=== PATIENT | male | born 1965 | race African-American/Black ===

== ENCOUNTER 2017-01-11 11:50 | Inpatient (IN) | payer OTHER ==
[2017-01-11 13:23] VITALS: BMI 33.6
--- NOTE | 2017-01-11 15:37 | HP ---
CIWA Score - CIWA Score Nausea/Vomitin Muscle Tremors: 2 Anxiety: 3 Agitation: 2 Paroxysmal Sweats: 3 Orientation: 0-Oriented Tacttile Disturbances: 1-Very Mild Itch/Numbness Auditory Disturbances: 0-None Visual Disturbances: 0-None Headache: 0-None Present CIWA-Ar Total Score: 13 Admission ROS BHS - HPI Chief Complaint: I need to get detoxed and i need help. Allergies/Adverse Reactions: Allergies Allergy/AdvReac Type Severity Reaction Status Date / Time shellfish derived Allergy Severe Difficulty Verified 01/11/17 15:30 Breathing History of Present Illness: 51 y/o m pt with a h/o chronic alcoholism and crack dep seeking detox. Exam Limitations: No Limitations - Ebola screening Have you traveled outside of the country in the last 21 days: No Have you had contact with anyone from an Ebola affected area: No Have you been sick,other than usual withdrawal symptoms: No Do you have a fever: No - Review of Systems Constitutional: Malaise, Changes in sleep EENT: reports: Other (OS blindness) Respiratory: reports: No Symptoms reported Cardiac: reports: No Symptoms Reported GI: reports: No Symptoms Reported : reports: No Symptoms Reported Musculoskeletal: reports: No Symptoms Reported Integumentary: reports: No Symptoms Reported Neuro: reports: Tremors, Weakness Endocrine: reports: No Symptoms Reported Hematology: reports: Other (h/o high hemoglobin) Psychiatric: reports: No Sypmtoms Reported Other Systems: Reviewed and Negative Patient History - Patient Medical History Hx Anemia: No Hx Asthma: No Hx Chronic Obstructive Pulmonary Disease (COPD): No Hx Cancer: No Hx Cardiac Disorders: No Hx Congestive Heart Failure: No Hx Hypertension: Yes Hx Hypercholesterolemia: Yes Hx Pacemaker: No HX Cerebrovascular Accident: No Hx Seizures: No Hx Dementia: No Hx Diabetes: No Hx Gastrointestinal Disorders: No Hx Liver Disease: No Hx Genitourinary Disorders: No Hx Sexually Transmitted Disorders: No Hx Renal Disease (ESRD): Yes Hx Thyroid Disease: No Hx Human Immunodeficiency Virus (HIV): Yes Hx Hepatitis C: No Hx Depression: No Hx Suicide Attempt: No Hx Bipolar Disorder: No Hx Schizophrenia: No Other Medical History: gout - Patient Surgical History Past Surgical History: Yes Other Surgical History: OD detached retina - PPD History Documented Results: Positive w/proof PPD to be Administered?: No - Reproductive History Patient is a Female of Child Bearing Age (11 -55 yrs old): No - Smoking Cessation Smoking history: Current every day smoker Have you smoked in the past 12 months: Yes Aproximately how many cigarettes per day: 5 Cigars Per Day: 0 Hx Chewing Tobacco Use: No Initiated information on smoking cessation: Yes 'Breaking Loose' booklet given: 01/11/17 - Substance & Tx. History Hx Alcohol Use: Yes Hx Substance Use: Yes Substance Use Type: Alcohol, Cocaine Hx Substance Use Treatment: Yes - Substances Abused Alcohol Route: Oral Frequency: Daily Amount used: vodka 1pt/d Age of first use: 14 Date of Last Use: 01/10/17 Crack Route: Smoking Frequency: Daily Amount used: $50./d Age of first use: 18 Date of Last Use: 01/10/17 Family Disease History - Family Disease History Family Disease History: Diabetes: Father, Brother (esrd), Sister, Heart Disease : Father Admission Physical Exam BHS - Vital Signs Vital Signs: Vital Signs - 24 hr 01/11/17 13:21 Temperature 96 F L Pulse Rate 59 L Respiratory 19 Rate Blood Pressure 144/92 51 y/o obese m pt aox3 in nad ambulating - Physical General Appearance: Yes: No Apparent Distress, Appropriately Dressed, Obese HEENTM: Yes: EOMI, Hearing grossly Normal, Normal Voice, Other (OS opacity , erythematous conjunctiva) Respiratory: Yes: Chest Non-Tender, Lungs Clear, Normal Breath Sounds, No Respiratory Distress Neck: Yes: Supple Breast: Yes: Within Normal Limits Cardiology: Yes: Regular Rhythm, S1, S2, Bradycardia Abdominal: Yes: Non Tender, Flat, Soft, Increased Bowel Sounds, Protuberent Genitourinary: Yes: Within Normal Limits Back: Yes: Decreased Range of Motion Musculoskeletal: Yes: Within Normal Limits Extremities: Yes: Within Normal Limits Neurological: Yes: Fully Oriented, Alert, Motor Strength 5/5, Normal Response, Finger to Nose Integumentary: Yes: Moist Lymphatic: Yes: Within Normal Limits - Diagnostic (1) Alcohol dependence with uncomplicated withdrawal Current Visit: Yes Status: Chronic (2) Crack cocaine use Current Visit: Yes Status: Chronic (3) HIV (human immunodeficiency virus infection) Current Visit: Yes Status: Chronic (4) HTN (hypertension) with goal to be determined Current Visit: Yes Status: Chronic (5) Blindness of left eye Current Visit: Yes Status: Chronic (6) Gout Current Visit: Yes Status: Chronic Qualifiers: Gout site: unspecified site Chronicity: chronic (7) Nicotine dependence Current Visit: Yes Status: Chronic Qualifiers: Nicotine product type: cigarettes Substance use status: uncomplicated Qualified Code(s): F17.210 - Nicotine dependence, cigarettes, uncomplicated Cleared for Admission [facility] - Detox or Rehab [facility] Level of Care: Medically Managed Detox Regimen/Protocol: Librium S Breath Alcohol Content Breath Alcohol Content: 0 Urine Drug Screen - Results Drug Screen Negative: Yes
[2017-01-11] MEDS ORDERED: guaiFENesin/D-METHORPHAN HB 10 ML UNIT-DOSE CUPS PO PRN (15:59)
[2017-01-11] MEDS ORDERED: P-EPHED 60MG/TRIPROLIDI 2.5MG TABLET PO PRN (15:59)
[2017-01-11] MEDS ORDERED: LOPERAMIDE HCL 2 MG CAPSULE PO PRN (15:59)
[2017-01-11] MEDS ORDERED: MENTHOL/PHENOL 1 EACH UD MM PRN (15:59)
[2017-01-11] MEDS ORDERED: hydrOXYzine PAMOATE 25 MG CAPSULE (FP) PO PRN (15:59)
[2017-01-11] MEDS ORDERED: MAGNESIUM CITRATE 300 ML BOTTLE PO PRN (15:59)
[2017-01-11] MEDS ORDERED: diphenhydrAMINE HCL 50 MG CAPSULE PO PRN (15:59)
[2017-01-11] MEDS ORDERED: MAGNESIUM HYDROX 2400MG/30ML ORAL SUSPENSION 30 ML CUP PO PRN (15:59)
[2017-01-11] MEDS ORDERED: MAG HYDROX/AL HYDROX/SIMETH 30 ML UNIT-DOSE CUP PO PRN (15:59)
[2017-01-11] MEDS ORDERED: NICOTINE POLACRILEX 2 MG GUM BC PRN (15:59)
[2017-01-11] MEDS ORDERED: ACETAMINOPHEN 325 MG TABLET (FP) PO PRN (15:59)
[2017-01-11] MEDS ORDERED: IBUPROFEN 400 MG TABLET (FP) PO PRN (15:59)
[2017-01-11] MEDS ORDERED: chlordiazePOXIDE HCL 25 MG CAPSULE PO PRN (15:59)
[2017-01-11] MEDS: chlordiazePOXIDE HCL 25 MG CAPSULE PO SCH ×2 (17:57→22:12)
[2017-01-11] MEDS ORDERED: ATORVASTATIN CA 10 MG TABLET (FP) PO SCH (22:00)
[2017-01-11] MEDS: COLCHICINE 0.6 MG TABLET (FP) PO SCH (22:13)
[2017-01-11] MEDS: THIAMINE HCL 100 MG TABLET (FP) PO SCH (22:13)
[2017-01-11] MEDS: cloNIDine HCL 0.1 MG TABLET PO SCH (22:13)
[2017-01-11] MEDS: prednisoLONE ACETATE 1% OPHTH SUSP 5 ML BOTTLE OS SCH (22:58)
[2017-01-12] MEDS: chlordiazePOXIDE HCL 25 MG CAPSULE PO SCH ×4 (06:15→22:09)
[2017-01-12] MEDS: COLCHICINE 0.6 MG TABLET (FP) PO SCH ×3 (06:17→22:09)
[2017-01-12 09:57] LABS: MCHC 32.9 g/dl (32.0-35.9); MEAN CELL VOLUME 97.3 fl (80-96); MEAN PLT VOLUME 13.8 fl (7.5-11.1); PLATELET COUNT 91 K/MM3 (134-434); RDW 13.8 % (11.9-15.9)
[2017-01-12 10:45] LABS: ALBUMIN 3.7 g/dl (3.4-5.0); BILIRUBIN,TOTAL 0.4 mg/dL (0.2-1.0); CALCIUM 9.5 mg/dL (8.5-10.1); COCKROFT - GAULT 69.19; CREATININE 1.6 mg/dL (0.7-1.3)
--- NOTE | 2017-01-12 10:54 | PN ---
S CIWA - CIWA Score Nausea/Vomitin-No Nausea/No Vomiting Muscle Tremors: 4-Moderate,w/Arms Extend Anxiety: 3 Agitation: 3 Paroxysmal Sweats: 3 Orientation: 0-Oriented Tacttile Disturbances: 0-None Auditory Disturbances: 0-None Visual Disturbances: 0-None Headache: 0-None Present CIWA-Ar Total Score: 13 BHS Progress Note (SOAP) Subjective: shakes sweats interrupted sleep body aches irritable Objective: 01/12/17 10:53 Vital Signs Temperature 98.4 F 01/12/17 09:43 Pulse Rate 78 01/12/17 09:43 Respiratory Rate 16 01/12/17 09:43 Blood Pressure 129/89 01/12/17 09:43 O2 Sat by Pulse Oximetry (%) Laboratory Tests 01/12/17 01/12/17 06:00 06:00 WBC 5.0 RBC 5.59 Hgb 17.9 H Hct 54.4 H MCV 97.3 H MCHC 32.9 RDW 13.8 Plt Count 91 L MPV 13.8 H Sodium 143 Potassium 3.9 Chloride 106 Carbon Dioxide 25 Anion Gap 12 BUN 17 Creatinine 1.6 H Creat Clearance w eGFR 45.44 Random Glucose 120 H Calcium 9.5 Total Bilirubin 0.4 AST 36 ALT 36 Alkaline Phosphatase 65 Total Protein 7.0 Albumin 3.7 awake/alert ambulating no acute distress Assessment: 01/12/17 11:17 withdrawal sx Plan: continue detox increase fluids
[2017-01-12] MEDS: METOPROLOL SUCCINATE 25 MG TAB.SR.24H (FP) PO SCH (11:02)
[2017-01-12] MEDS: amLODIPine BESYLATE 10 MG TABLET (FP) PO SCH (11:02)
[2017-01-12] MEDS: PRENATAL VITAMINS W/ FOLIC ACID TABLET (FP) PO SCH (11:02)
[2017-01-12] MEDS: cloNIDine HCL 0.1 MG TABLET PO SCH ×2 (11:03→22:09)
[2017-01-12] MEDS: LOSARTAN POTASSIUM 50 MG TABLET (FP) PO SCH (11:04)
[2017-01-12] MEDS: ALLOPURINOL 100 MG TABLET (FP) PO SCH (11:04)
[2017-01-12] MEDS: NICOTINE 7 MG/24 HOURS TOPICAL PATCH TD SCH (11:05)
[2017-01-12] MEDS: prednisoLONE ACETATE 1% OPHTH SUSP 5 ML BOTTLE OS SCH ×2 (11:08→22:08)
[2017-01-12] MEDS: AZELASTINE 0.05% OU SCH (22:08)
[2017-01-12] MEDS: ZOCOR 20 MG PO SCH (22:09)
[2017-01-12] MEDS: THIAMINE HCL 100 MG TABLET (FP) PO SCH (22:09)
--- NOTE | 2017-01-12 23:08 | EKG ---
Test Reason : Blood Pressure : / mmHG Vent. Rate : 050 BPM Atrial Rate : 050 BPM P-R Int : 138 ms QRS Dur : 088 ms QT Int : 422 ms P-R-T Axes : 050 000 007 degrees QTc Int : 384 ms SINUS BRADYCARDIA POSSIBLE LEFT ATRIAL ENLARGEMENT ST ELEVATION, CONSIDER EARLY REPOLARIZATION, PERICARDITIS, OR INJURY ABNORMAL ECG NO PREVIOUS ECGS AVAILABLE Confirmed by ISAI KASPER MD ([id number]) on 01/12/2017 11:07:54 PM Referred By: Confirmed By:ISAI KASPER MD
[2017-01-13] MEDS: COLCHICINE 0.6 MG TABLET (FP) PO SCH ×3 (06:15→22:07)
[2017-01-13] MEDS: chlordiazePOXIDE HCL 25 MG CAPSULE PO SCH ×2 (06:15→11:07)
[2017-01-13] MEDS: METOPROLOL SUCCINATE 25 MG TAB.SR.24H (FP) PO SCH (11:07)
[2017-01-13] MEDS: AZELASTINE 0.05% OU SCH ×2 (11:07→22:04)
[2017-01-13] MEDS: cloNIDine HCL 0.1 MG TABLET PO SCH ×2 (11:07→22:04)
[2017-01-13] MEDS: PRENATAL VITAMINS W/ FOLIC ACID TABLET (FP) PO SCH (11:07)
[2017-01-13] MEDS: NICOTINE 7 MG/24 HOURS TOPICAL PATCH TD SCH (11:08)
[2017-01-13] MEDS: LOSARTAN POTASSIUM 50 MG TABLET (FP) PO SCH (11:08)
[2017-01-13] MEDS: amLODIPine BESYLATE 10 MG TABLET (FP) PO SCH (11:09)
[2017-01-13] MEDS: prednisoLONE ACETATE 1% OPHTH SUSP 5 ML BOTTLE OS SCH ×2 (11:25→22:04)
[2017-01-13] MEDS: ALLOPURINOL 100 MG TABLET (FP) PO SCH (11:42)
--- NOTE | 2017-01-13 13:42 | PN ---
S CIWA - CIWA Score Nausea/Vomitin Muscle Tremors: 2 Anxiety: 2 Agitation: 2 Paroxysmal Sweats: 3 Orientation: 0-Oriented Tacttile Disturbances: 1-Very Mild Itch/Numbness Auditory Disturbances: 0-None Visual Disturbances: 0-None Headache: 0-None Present CIWA-Ar Total Score: 12 S Progress Note (SOAP) Subjective: interrupted sleep, sweats but better than yesterday Vital Signs Temperature 97.9 F 01/13/17 09:45 Pulse Rate 76 01/13/17 09:45 Respiratory Rate 16 01/13/17 09:45 Blood Pressure 136/98 01/13/17 09:45 O2 Sat by Pulse Oximetry (%) Laboratory Tests 01/12/17 01/12/17 01/12/17 06:00 06:00 06:00 WBC 5.0 RBC 5.59 Hgb 17.9 H Hct 54.4 H MCV 97.3 H MCHC 32.9 RDW 13.8 Plt Count 91 L MPV 13.8 H Sodium 143 Potassium 3.9 Chloride 106 Carbon Dioxide 25 Anion Gap 12 BUN 17 Creatinine 1.6 H Creat Clearance w eGFR 45.44 Random Glucose 120 H Calcium 9.5 Total Bilirubin 0.4 AST 36 ALT 36 Alkaline Phosphatase 65 Total Protein 7.0 Albumin 3.7 RPR Titer Nonreactive pt aox3 in nad ambulating Assessment: 01/13/17 13:38 withdrawal sxls renal insufficiency elevated h/h thrombocytopenia elevated glucose 01/13/17 13:40 01/13/17 13:40 Plan: cont. detox increase fluids d/c mg products bgm /d f/up with pmd at d/c
[2017-01-13 14:16] LABS: URINE APPEARANCE CLEAR; URINE BILIRUBIN NEGATIVE (NEGATIVE); URINE BLOOD NEGATIVE (NEGATIVE); URINE COLOR YELLOW; URINE GLUCOSE (UA) NEGATIVE (NEGATIVE); URINE KETONE NEGATIVE (NEGATIVE); URINE LEUK ESTERASE NEGATIVE (NEGATIVE); URINE NITRITE NEGATIVE (NEGATIVE); URINE UROBILINOGEN NEGATIVE E.U./dl (0.2-1.0)
[2017-01-13 14:32] LABS: URINE PROTEIN 2+ (NEGATIVE)
[2017-01-13 14:34] LABS: URINE RBC <1 /hpf (0-3); URINE WBC <1 /hpf (3-5)
[2017-01-13] MEDS: chlordiazePOXIDE 5 MG CAPSULE PO SCH ×2 (17:38→22:04)
[2017-01-13] MEDS: ZOCOR 20 MG PO SCH (22:05)
[2017-01-13] MEDS: THIAMINE HCL 100 MG TABLET (FP) PO SCH (22:05)
[2017-01-14] MEDS: COLCHICINE 0.6 MG TABLET (FP) PO SCH ×3 (06:10→22:09)
[2017-01-14] MEDS: chlordiazePOXIDE 5 MG CAPSULE PO SCH ×2 (06:10→11:08)
[2017-01-14] MEDS: ALLOPURINOL 100 MG TABLET (FP) PO SCH (11:07)
[2017-01-14] MEDS: cloNIDine HCL 0.1 MG TABLET PO SCH ×2 (11:07→22:09)
[2017-01-14] MEDS: amLODIPine BESYLATE 10 MG TABLET (FP) PO SCH (11:07)
[2017-01-14] MEDS: METOPROLOL SUCCINATE 25 MG TAB.SR.24H (FP) PO SCH (11:07)
[2017-01-14] MEDS: PRENATAL VITAMINS W/ FOLIC ACID TABLET (FP) PO SCH (11:07)
[2017-01-14] MEDS: LOSARTAN POTASSIUM 50 MG TABLET (FP) PO SCH (11:07)
[2017-01-14] MEDS: AZELASTINE 0.05% OU SCH ×2 (11:09→22:09)
[2017-01-14] MEDS: NICOTINE 7 MG/24 HOURS TOPICAL PATCH TD SCH (11:09)
[2017-01-14] MEDS: prednisoLONE ACETATE 1% OPHTH SUSP 5 ML BOTTLE OS SCH ×2 (11:10→22:10)
[2017-01-14] MEDS: HYDROCHLOROTHIAZIDE 12.5 MG CAPSULE (FP) PO SCH (11:13)
--- NOTE | 2017-01-14 11:42 | PN ---
BHS Progress Note (SOAP) Subjective: sweats shakes interrupted sleep irritable Objective: 01/14/17 11:42 Vital Signs Temperature 98.1 F 01/14/17 09:30 Pulse Rate 74 01/14/17 09:30 Respiratory Rate 16 01/14/17 09:30 Blood Pressure 140/105 01/14/17 09:30 O2 Sat by Pulse Oximetry (%) awake/alert ambulating no acute distress Assessment: 01/14/17 11:42 withdrawal sx Plan: continue detox increase fluids monitor BP HCTZ 12.5mg
[2017-01-14] MEDS: chlordiazePOXIDE HCL 10 MG CAPSULE PO SCH ×2 (17:53→22:09)
[2017-01-14] MEDS: ZOCOR 20 MG PO SCH (22:08)
[2017-01-14] MEDS: THIAMINE HCL 100 MG TABLET (FP) PO SCH (22:09)
[2017-01-15] MEDS: COLCHICINE 0.6 MG TABLET (FP) PO SCH (06:10)
[2017-01-15] MEDS: chlordiazePOXIDE HCL 10 MG CAPSULE PO SCH ×2 (06:10→11:20)
--- NOTE | 2017-01-15 08:07 | PN ---
BHS Progress Note (SOAP) Subjective: ALERT,NO COMPLAINT Objective: 01/15/17 08:05 Vital Signs Temperature 96.4 F L 01/15/17 06:34 Pulse Rate 68 01/15/17 06:34 Respiratory Rate 20 01/15/17 06:34 Blood Pressure 122/95 01/15/17 06:34 O2 Sat by Pulse Oximetry (%) Assessment: 01/15/17 08:05 DETOX COMPLETED,NO WITHDRAWAL SYMPTOM.BGM 119 Plan: DISCHARGE TODAY,FOLLOW UP WITH AFTER CARE PROGRAM ARRANGEMENT
--- NOTE | 2017-01-15 08:20 | DS ---
[facility] Detox Discharge Summary Admission Date: 01/11/17 Discharge Date: 01/15/17 - History Present History: Alcohol Dependence, Cocaine Dependence Additional Comments: FOLLOW UP WITH AFTER [facility] PROGRAM ARRANGEMENT AND PMD FOR MEDICAL PROBLEM Pertinent Past History: HIV HYPERTENSION BLINDNESS OF LEFT EYE NICOTINE DEPENDENCE GOUT - Physical Exam Results Vital Signs: Vital Signs Temperature 96.4 F L 01/15/17 06:34 Pulse Rate 68 01/15/17 06:34 Respiratory Rate 20 01/15/17 06:34 Blood Pressure 122/95 01/15/17 06:34 O2 Sat by Pulse Oximetry (%) Pertinent Admission Physical Exam Findings: WITHDRAWAL SYMPTOM - Treatment Hospital Course: Detox Protocol Followed, Detoxed Safely, Responded well, Discharged Condition Good, Rehab Referral Accepted Patient has Accepted a Rehab Referral to: [facility] - Medication Discharge Medications: Ambulatory Orders Abacavir/Dolutegravir/Lamivudi [Triumeq Tablet] 1 each PO HS 01/11/17 Allopurinol [Zyloprim -] 100 mg PO DAILY 01/11/17 Amlodipine Besylate [Norvasc -] 10 mg PO DAILY 01/11/17 Clonidine HCl [Catapres -] 0.2 mg PO BID 01/11/17 Colchicine [Colcrys -] 0.6 mg PO TID 01/11/17 Folic Acid/Multivit-Min/Lutein [Therapeutic-M Tablet] 1 each PO DAILY 01/11/17 Losartan Potassium [Cozaar] 100 mg PO DAILY 01/11/17 Metoprolol Succinate [Toprol XL -] 25 mg PO DAILY 01/11/17 Prednisolone 1% Ophthalmic [Pred Forte 1% -] 1 drop OS BID 01/11/17 Simvastatin [Zocor -] 20 mg PO HS 01/11/17 - AMA Did Patient Leave Against Medical Advice: No
[2017-01-15 10:39] VITALS: BP 133/104; PULSE 79; TEMP 97.3
[2017-01-15] MEDS: PRENATAL VITAMINS W/ FOLIC ACID TABLET (FP) PO SCH (11:19)
[2017-01-15] MEDS: cloNIDine HCL 0.1 MG TABLET PO SCH (11:19)
[2017-01-15] MEDS: HYDROCHLOROTHIAZIDE 12.5 MG CAPSULE (FP) PO SCH (11:20)
[2017-01-15] MEDS: amLODIPine BESYLATE 10 MG TABLET (FP) PO SCH (11:20)
[2017-01-15] MEDS: LOSARTAN POTASSIUM 50 MG TABLET (FP) PO SCH (11:20)
[2017-01-15] MEDS: METOPROLOL SUCCINATE 25 MG TAB.SR.24H (FP) PO SCH (11:20)
[2017-01-15] MEDS: ALLOPURINOL 100 MG TABLET (FP) PO SCH (11:21)
[2017-01-15] MEDS: AZELASTINE 0.05% OU SCH (11:23)
[2017-01-15] MEDS: prednisoLONE ACETATE 1% OPHTH SUSP 5 ML BOTTLE OS SCH (11:23)
[2017-01-15] MEDS: NICOTINE 7 MG/24 HOURS TOPICAL PATCH TD SCH (11:23)
== END 2017-01-15 12:10 | disposition home or self-care (01) | DRG 774 ==
LOC: YASAS 11:50 → Y6N 15:49
PROVIDERS: ADMIT Internal Medicine Addiction Medicine; ATTEND Internal Medicine Addiction Medicine
PROC: HZ2ZZZZ Detoxification Services for Substance Abuse Treatment (ICD-10-PCS; principal; 2017-01-15)
DX: F10.230 Alcohol dependence with withdrawal, uncomplicated (principal); F17.210 Nicotine dependence, cigarettes, uncomplicated; F14.10 Cocaine abuse, uncomplicated; I10 Essential (primary) hypertension; M10.9 Gout, unspecified; Z21 Asymptomatic human immunodeficiency virus [HIV] infection status; H54.42 Blindness, left eye, normal vision right eye
CPT/HCPCS: 36415; 71020-TC; 80053; 81003; 81015; 85027; 86593; 93005; 93010